=== PATIENT | female | born 1945 | race Caucasian/White ===

== ENCOUNTER 2018-01-09 20:33 | Emergency (ER) | payer MEDICARE ==
[2018-01-09] MEDS ORDERED: ACETAMINOPHEN 325 MG TABLET PO ONE (21:08)
--- NOTE | 2018-01-09 21:45 | RADIOLOGY REPORT (SQ) ---
EXAM DESCRIPTION: HAND LEFT 3 VIEWS COMPLETED DATE/TIME: 01/09/2018 9:28 pm REASON FOR STUDY: injury COMPARISON: None. EXAM PARAMETERS: NUMBER OF VIEWS: Three views. TECHNIQUE: AP, lateral and oblique radiographic images acquired of the left hand. LIMITATIONS: None. FINDINGS: MINERALIZATION: Normal. BONES: No acute fracture or dislocation. No worrisome bone lesions. JOINTS: Mild degenerative joint changes in the 1st metacarpophalangeal joint. SOFT TISSUES: Dorsal soft tissue swelling. OTHER: No other significant finding. IMPRESSION: Mild degenerative joint changes. TECHNICAL DOCUMENTATION: JOB ID: [id number] [email or web address]- All Rights Reserved Reading location - IP/workstation name: [email or web address]
--- NOTE | 2018-01-09 21:46 | RADIOLOGY REPORT (SQ) ---
EXAM DESCRIPTION: ANKLE RIGHT COMPLETE COMPLETED DATE/TIME: 01/09/2018 9:29 pm REASON FOR STUDY: injury COMPARISON: None. NUMBER OF VIEWS: Three views. TECHNIQUE: AP, lateral, and oblique radiographic images acquired of the right ankle. LIMITATIONS: None. FINDINGS: MINERALIZATION: Normal. BONES: No acute fracture or dislocation. No worrisome bone lesions. JOINTS: No effusions. SOFT TISSUES: No soft tissue swelling. No foreign body. OTHER: No other significant finding. IMPRESSION: NEGATIVE STUDY OF THE RIGHT ANKLE. NO RADIOGRAPHIC EVIDENCE OF ACUTE INJURY. TECHNICAL DOCUMENTATION: JOB ID: [id number] [employer]- All Rights Reserved Reading location - IP/workstation name: [email or web address]
--- NOTE | 2018-01-10 01:11 | ER Document Report ---
ED Fall - General Mode of Arrival: Ambulatory Information source: Patient TRAVEL OUTSIDE OF THE [place] IN LAST 30 DAYS: No - HPI Patient complains to provider of: Fall Occurred: This evening Where: Outdoors Context: Fell from standing Associated symptoms: Other - see notes above Location of injury/pain: Other - see notes above - General Chief Complaint: Fall Stated Complaint: FALL Time Seen by Provider: 01/10/18 00:17 Notes: 72 year old female presents to the ED after falling face first down 7 wooden deck stairs earlier this evening and injuring her head, neck, chest, left arm, and right leg earlier this evening. Patient reports that she was bent over putting a lid on a bucket and when she stood up to turn around, her right knee and ankle gave out and she fell. Patient reports no current head pain. Patient denies loss of consciousness or nausea. Patient is not on any blood thinning medications. (DWAINE MARIE) Past Medical History - General Information source: Patient - Social History Smoking Status: Never Smoker Family History: Reviewed & Not Pertinent Patient has suicidal ideation: No Patient has homicidal ideation: No Renal/ Medical History: Denies: Hx Peritoneal Dialysis Past Surgical History: Reports: Hx Cholecystectomy, Hx Gastric Bypass Surgery, Hx Hysterectomy, Hx Mastectomy Review of Systems - Review of Systems Constitutional: No symptoms reported EENT: No symptoms reported Cardiovascular: No symptoms reported Respiratory: No symptoms reported Gastrointestinal: No symptoms reported. denies: Nausea Genitourinary: No symptoms reported Female Genitourinary: No symptoms reported Musculoskeletal: See HPI, Other - right ankle and knee pain Skin: See HPI, Other - skin tear to the left arm Hematologic/Lymphatic: No symptoms reported Neurological/Psychological: See HPI, Headaches. denies: Lost consciousness -: Yes All other systems reviewed and negative Physical Exam - General General appearance: Alert In distress: None - HEENT Head: Other - Abrasion over the right filtrum. No: Normocephalic, Atraumatic Eyes: Normal Extraocular movements intact: Yes Pupils: PERRL - Respiratory Respiratory status: No respiratory distress - Cardiovascular Rhythm: Regular - Abdominal Inspection: Normal - Extremities General upper extremity: Normal ROM, Normal strength, Other - Abrasion to the left upper extremity. Hematoma to the dorsal aspect of the left hand.. No: Normal inspection General lower extremity: Normal ROM, Normal strength, Other - Abrasion to the lateral right thigh. Bilateral knee contusions. Non-specific tenderness to palpation of the right ankle. - Neurological Neuro grossly intact: Yes - Psychological Associated symptoms: Normal affect, Normal mood - Skin Skin Temperature: Warm Skin Moisture: Dry Skin Color: Normal Skin irregularity: other - see extremity exam above - Vital signs Vitals: Temp Pulse Resp BP Pulse Ox 97.8 F 70 20 168/77 H 97 01/09/18 21:37 01/09/18 21:37 01/09/18 21:37 01/09/18 21:37 01/09/18 21:37 Course - Re-evaluation Re-evalutation: 01/10/18 02:57 Patient is a 72-year-old female who fell down 7 wooden steps this evening. Patient has no acute findings on her head CT. No fractures or dislocations identified on her x-rays. Patient is able to ambulate with crutches and Noel bandages. I have offered admission due to her pain and difficulty with ambulation. Her daughter would prefer to take her home. Daughter states that she and her are retired and will be able to take care of her mother. Patient will be discharged home with a Rollator and pain medication. She is to follow-up with a primary doctor and orthopedics as needed. Understands and agrees with plan. Tetanus has been updated. Noel wraps have been applied to right ankle, right knee, and left hand. Stable for discharge. Grateful for care. (DAVID MARTINEZ) - Vital Signs Vital signs: Temp Pulse Resp BP Pulse Ox 97.7 F 79 20 153/86 H 97 01/10/18 03:12 01/10/18 03:12 01/10/18 03:12 01/10/18 03:12 01/10/18 03:12 Discharge - Discharge Clinical Impression: Fall (on) (from) other stairs and steps, initial encounter Head injury Qualifiers: Encounter type: initial encounter Qualified Code(s): S09.90XA - Unspecified injury of head, initial encounter Arm abrasion Qualifiers: Encounter type: initial encounter Laterality: left Qualified Code(s): S40.812A - Abrasion of left upper arm, initial encounter Knee contusion Qualifiers: Encounter type: initial encounter Laterality: unspecified laterality Qualified Code(s): S80.00XA - Contusion of unspecified knee, initial encounter Osteoarthritis of knees, bilateral Qualifiers: Osteoarthritis type: unspecified Qualified Code(s): M17.0 - Bilateral primary osteoarthritis of knee Ankle injury Qualifiers: Encounter type: initial encounter Laterality: right Qualified Code(s): S99.911A - Unspecified injury of right ankle, initial encounter Traumatic hematoma of left hand Qualifiers: Encounter type: initial encounter Qualified Code(s): S60.222A - Contusion of left hand, initial encounter Condition: Stable Disposition: HOME, SELF-CARE Instructions: Abrasions ([facility]), Noel Wrap ([facility]), Contusion ([facility]), Family Physicians / Practices, Head Injury Precautions ([facility]), Hematoma ([facility]), Ice Packs ([facility]), Osteoarthritis ([facility]) Prescriptions: Oxycodone HCl/Acetaminophen [Percocet 5-325 mg Tablet] 1 - 2 tab PO Q4H PRN #15 tablet PRN Reason: Walker [Ultra-Light Rollator] 1 each [facility] DAILY #1 each Referrals: JOSELYN JOHNSON MD [ACTIVE STAFF] - Follow up in 1 week Scribe Attestation: 01/10/18 04:26 I personally performed the services described in the documentation, reviewed and edited the documentation which was dictated to the scribe in my presence, and it accurately records my words and actions. (DAVID MARTINEZ) Scribe Documentation - Scribe Written by Scribe:: Hernán Doshi, 01/10/2018 0119 acting as scribe for :: Lena
[2018-01-10] MEDS ORDERED: DIPH/PERTUSS(ACELL)/TETANUS VAC/PF 0.5 ML SYR (>=10YO) IM ONE (01:43)
--- NOTE | 2018-01-10 01:43 | RADIOLOGY REPORT (SQ) ---
EXAM DESCRIPTION: CT HEAD WITHOUT CLINICAL HISTORY: fall, headache COMPARISON: None available TECHNIQUE: Axial CT of the head obtained from the skull apex to the skull base without contrast. FINDINGS: No acute intracranial hemorrhage identified. No mass, mass effect, shift of the midline, abnormal extra-axial fluid collection or CT evidence of acute ischemic change identified. The ventricular system and sulcal spaces are mildly enlarged compatible with mild cerebral atrophy. Scattered areas of hypodensity throughout the supratentorial white matter are nonspecific and may be related to chronic small vessel ischemic change. The visualized paranasal sinuses and the mastoids are clear. No skull fracture identified. Visualized orbits and globes are unremarkable. Atherosclerotic calcification of the intracranial internal carotid arteries. DLP:1017.17 mGy-cm IMPRESSION: 1. No acute intracranial abnormality by CT criteria. This exam was performed according to our departmental dose-optimization program, which includes automated exposure control, adjustment of the mA and/or kV according to patient size and/or use of iterative reconstruction technique.
--- NOTE | 2018-01-10 02:17 | RADIOLOGY REPORT (SQ) ---
EXAM DESCRIPTION: KNEE BILATERAL 1-2 VIEWS CLINICAL HISTORY: fall, pain COMPARISON: None. FINDINGS: Right knee: 2 views of the right knee. No acute fracture or dislocation. Osteopenia. Severe 3 compartment joint space narrowing and marginal osteophytosis. Left knee: 2 views of the left knee. No acute fracture or dislocation. Osteopenia. Severe 3 compartment joint space narrowing and marginal osteophytosis. IMPRESSION: 1. No acute fracture or dislocation. 2. Severe bilateral 3 compartment osteoarthritic change.
[2018-01-10] MEDS ORDERED: HYDROCODONE/ACETAMINOPHEN 5-325 MG (6 TAB/ER DISP) PO PRN (02:58)
[2018-01-10 03:42] VITALS: BP 153/86
== END 2018-01-10 03:30 | disposition home or self-care (01) ==
LOC: ER 20:33
DX: S09.90XA Unspecified injury of head, initial encounter (principal); S40.812A Abrasion of left upper arm, initial encounter; S80.01XA Contusion of right knee, initial encounter; S80.02XA Contusion of left knee, initial encounter; S99.911A Unspecified injury of right ankle, initial encounter; S60.222A Contusion of left hand, initial encounter; S70.311A Abrasion, right thigh, initial encounter; S00.81XA Abrasion of other part of head, initial encounter; M17.0 Bilateral primary osteoarthritis of knee; M25.571 Pain in right ankle and joints of right foot; M25.561 Pain in right knee; W10.8XXA Fall (on) (from) other stairs and steps, initial encounter
CPT/HCPCS: 99284; 90471; 73610; 73130; 73560; 70450; 90715; A9270 ×2

== ENCOUNTER 2018-07-30 06:55 | Day surgery (SDC) | payer MEDICARE ==
[~2018-07-30 06:55] MED LIST: KETOROLAC TROMETHAMINE 0.45% 4 DROP/0.4 ML DROPERETTE OD PRN
[2018-07-30] MEDS ORDERED: MIDAZOLAM 2 MG/2 ML INJ ONE (07:00)
[2018-07-30] MEDS: TETRACAINE HCL 0.5% OPH SOLN 0.6 ML DROPERETTE OD PRN ×2 (07:10→07:39)
[2018-07-30] MEDS: TROPICAMIDE 1% OPH SOLN 3 ML OD PRN ×3 (07:11→07:35)
[2018-07-30] MEDS: CYCLOPENTOLATE 0.2%/PHENYLEPHRINE 1% OPH SOLN 2 ML OD PRN ×3 (07:11→07:35)
[2018-07-30] MEDS: BESIFLOXACIN HCL 0.6% OPH SUSP 5 ML BOTTLE OD PRN ×4 (07:11→08:23)
[2018-07-30] MEDS: LIDOCAINE 4% INJ/PF (40 MG/ML) 5 ML AMPUL OD PRN ×2 (07:59)
[2018-07-30] MEDS: BUPIVACAINE HCL 0.75% INJ/PF (7.5 MG/1 ML) 10 ML SDV OD PRN ×2 (07:59)
[2018-07-30] MEDS: EPINEPHRINE INJ/PF 1 MG/1 ML AMPULE ONE ×2 (08:08)
[2018-07-30] MEDS: CHONDR SU A NA/HYALUR INTRAOC KIT (SURGICARE) ONE ×2 (08:08)
[2018-07-30] MEDS: LIDOCAINE 1% INJ-PF (10 MG/ML) 30 ML SDV ONE ×2 (08:08)
[2018-07-30] MEDS: DORZOLAMIDE HCL 2%/TIMOLOL MALEAT 0.5% OPH SOLN 10 ML OD PRN ×2 (08:23)
--- NOTE | 2018-07-30 10:37 | [facility] OPERATIVE REPORT E ---
[facility] Operative Report NAME: KAROLYN TALAVERA AGE: 73Y DATE OF SURGERY: 07/30/2018 ROOM: PREOPERATIVE DIAGNOSIS: CATARACT, RIGHT EYE. POSTOPERATIVE DIAGNOSIS: CATARACT, RIGHT EYE. PROCEDURE PERFORMED: PHACOEMULSIFICATION WITH POSTERIOR CHAMBER INTRAOCULAR LENS, RIGHT EYE. SURGEON: GILMA SIMPSON MD ANESTHESIA: TOPICAL WITH MAC. INDICATIONS FOR SURGERY: Difficulty reading road signs. Best corrected visual acuity 20/60. PROCEDURE: The patient was brought to the Operating Room and placed on the operative table. Following tetracaine drops, topical anesthesia was administered. This consisted of instrument wipe pledgets soaked in a solution of 4% Xylocaine mixed with 0.75% Marcaine in a 1:2 ratio. A 2 x 1 cm pledget was placed in the superior fornix. A 1 x 1 cm pledget was placed in the inferior fornix. The eye was patched shut for 5 minutes. The patch was removed. The eye was sterilely prepped and draped in the usual manner. Lid speculum was placed in the eye. The pledgets were removed. 4-0 black silk sutures were placed around the superior and the inferior rectus muscles to be used as traction. A conjunctival peritomy was made at the 10 o'clock position. Hemostasis was obtained with bipolar cautery. A posterior limbal groove was created using a crescent knife and dissected anteriorly towards the cornea. A sharp point blade was used to create a paracentesis site at the 2 o'clock position. A 2.4 mm keratome was used to enter the anterior chamber through the groove. Viscoelastic was injected into the anterior chamber. An anterior capsulotomy was performed using Utrata forceps in a capsulorrhexis fashion. Hydrodissection and hydrodelineation were performed. Phacoemulsification was performed in [id number]-[id number] technique. A total of 11.80 CDE phaco time was used. Following this, the I/A unit was used to remove residual cortex. Viscoelastic was injected into the capsular bag. Intraocular lens model SN60WF, 21.0 diopters, serial number [id number] was placed in the capsular bag. The I/A unit was used to remove residual viscoelastic. The wound was seen to be watertight under high and low pressure, and no sutures were placed. The intraocular lens was well centered. The pressure was adjusted in the eye to normal pressure. The 4-0 black silk sutures and lid speculum were removed. The eye was shielded after Besivance drops were placed. The patient tolerated the procedure well and was sent to the Recovery Room in good condition. DICTATING PHYSICIAN: GILMA SIMPSON M.D. DICTATING PHYSICIAN: GILMA SIMPSON M.D. [id number] PHY#: [id number] ID: [id number] JOB#: [id number] ACCT: [id number] cc:GILMA SIMPSON M.D. >
--- NOTE | 2018-07-30 10:38 | [facility] DISCHARGE SUMMARY E ---
[facility] Discharge Summary NAME: KAROLYN TALAVERA AGE: 73Y ADMITTED: 07/30/2018 DISCHARGED: 07/30/2018 FINAL DIAGNOSIS: CATARACT, RIGHT EYE. HOSPITAL COURSE: The patient is a 73-year-old lady who underwent uneventful cataract extraction with intraocular lens implant, right eye on 07/30/2018. She will be discharged to home. She is instructed to resume preoperative medications, take Tylenol as needed for discomfort, to keep her eye shielded, to use Durezol, Ilevro, and Besivance at 3 p.m. and 8 p.m., and to follow up in my office in 1 day. DICTATING PHYSICIAN: GILMA SIMPSON M.D. [id number] PHY#: [id number] ID: [id number] JOB#: [id number] ACCT: [id number] cc:GILMA SIMPSON M.D. >
== END 2018-07-30 09:03 | disposition home or self-care (01) ==
LOC: SC 06:55
PROVIDERS: ATTEND Ophthalmology
DX: H25.813 Combined forms of age-related cataract, bilateral (principal); H53.2 Diplopia; H04.123 Dry eye syndrome of bilateral lacrimal glands; H52.4 Presbyopia; M19.90 Unspecified osteoarthritis, unspecified site; Z79.82 Long term (current) use of aspirin; Z79.899 Other long term (current) drug therapy; Z85.3 Personal history of malignant neoplasm of breast
CPT/HCPCS: 66984; V2632; J2250; J3490 ×4; A9270; J0171; 142

== ENCOUNTER 2018-08-20 06:45 | Day surgery (SDC) | payer MEDICARE ==
[2018-08-20] MEDS: TETRACAINE HCL 0.5% OPH SOLN 0.6 ML DROPERETTE OS PRN ×2 (07:01→07:33)
[2018-08-20] MEDS: TROPICAMIDE 1% OPH SOLN 3 ML OS PRN ×3 (07:02→07:30)
[2018-08-20] MEDS: BESIFLOXACIN HCL 0.6% OPH SUSP 5 ML BOTTLE OS PRN ×4 (07:02→08:22)
[2018-08-20] MEDS: CYCLOPENTOLATE 0.2%/PHENYLEPHRINE 1% OPH SOLN 2 ML OS PRN ×3 (07:02→07:30)
[2018-08-20] MEDS: KETOROLAC TROMETHAMINE 0.45% 4 DROP/0.4 ML DROPERETTE OS PRN ×2 (07:03→08:48)
[2018-08-20] MEDS ORDERED: MIDAZOLAM 2 MG/2 ML INJ ONE (07:36)
[2018-08-20] MEDS ORDERED: FENTANYL CITRATE INJ/PF 100 MCG/2 ML AMPUL ONE (07:36)
[2018-08-20] MEDS: BUPIVACAINE HCL 0.75% INJ/PF (7.5 MG/1 ML) 10 ML SDV OS PRN ×2 (07:56)
[2018-08-20] MEDS: LIDOCAINE 4% INJ/PF (40 MG/ML) 5 ML AMPUL OS PRN ×2 (07:56)
[2018-08-20] MEDS: EPINEPHRINE INJ/PF 1 MG/1 ML AMPULE ONE ×2 (08:08)
[2018-08-20] MEDS: LIDOCAINE 1% INJ-PF (10 MG/ML) 30 ML SDV ONE ×2 (08:08)
[2018-08-20] MEDS: CHONDR SU A NA/HYALUR INTRAOC KIT (SURGICARE) ONE ×2 (08:08)
[2018-08-20] MEDS: DORZOLAMIDE HCL 2%/TIMOLOL MALEAT 0.5% OPH SOLN 10 ML OS PRN ×2 (08:22)
--- NOTE | 2018-08-20 13:42 | [facility] OPERATIVE REPORT E ---
[facility] Operative Report NAME: KAROLYN TALAVERA AGE: 73Y DATE OF SURGERY: 08/20/2018 ROOM: PREOPERATIVE DIAGNOSIS: Cataract, left eye. POSTOPERATIVE DIAGNOSIS: Cataract, left eye. PROCEDURE PERFORMED: Phacoemulsification with posterior chamber intraocular lens, left eye. SURGEON: GILMA SIMPSON M.D. ANESTHESIA: Topical with MAC. INDICATIONS FOR SURGERY: Difficulty driving. PROCEDURE: The patient was brought to the Operating Room and placed on the operative table. Following tetracaine drops, topical anesthesia was administered. This consisted of instrument wipe pledgets soaked in a solution of 4% Xylocaine mixed with 0.75% Marcaine in a 1:2 ratio. A 2 x 1 cm pledget was placed in the superior fornix. A 1 x 1 cm pledget was placed in the inferior fornix. The eye was patched shut for 5 minutes. The patch was removed. The eye was sterilely prepped and draped in the usual manner. Lid speculum was placed in the eye. The pledgets were removed. 4-0 black silk sutures were placed around the superior and the inferior rectus muscles to be used as traction. A conjunctival peritomy was made at the 10 o'clock position. Hemostasis was obtained with bipolar cautery. A posterior limbal groove was created using a crescent knife and dissected anteriorly towards the cornea. A sharp point blade was used to create a paracentesis site at the 2 o'clock position. A 2.4 mm keratome was used to enter the anterior chamber through the groove. Viscoelastic was injected into the anterior chamber. An anterior capsulotomy was performed using Utrata forceps in a capsulorrhexis fashion. Hydrodissection and hydrodelineation were performed. Phacoemulsification was performed in [id number]-piilclv technique. A total of 11.82 CDE seconds phaco time was used. Following this, the I/A unit was used to remove residual cortex. Viscoelastic was injected into the capsular bag. Intraocular lens model SN60WF, 22.0 diopters, serial number [id number] was placed in the capsular bag. The I/A unit was used to remove residual viscoelastic. The wound was seen to be watertight under high and low pressure, and no sutures were placed. The intraocular lens was well centered. The pressure was adjusted in the eye to normal pressure. The 4-0 black silk sutures and lid speculum were removed. The eye was shielded after Besivance drops were placed. The patient tolerated the procedure well and was sent to the Recovery Room in good condition. DICTATING PHYSICIAN: GILMA SIMPSON M.D. [id number] PHY#: [id number] ID: [id number] JOB#: [id number] ACCT: [id number] cc:GILMA SIMPSON M.D. >
--- NOTE | 2018-08-20 13:42 | [facility] DISCHARGE SUMMARY E ---
[facility] Discharge Summary NAME: KAROLYN TALAVERA AGE: 73Y ADMITTED: 08/20/2018 DISCHARGED: 08/20/2018 HOSPITAL COURSE: The patient is a 73-year-old lady who underwent uneventful cataract extraction with intraocular lens implant left eye on 08/20/2018. She will be discharged to home. She is instructed to resume preoperative medications, to take Tylenol as needed for discomfort, to keep her eye shielded, to use Durezol, Ilevro, and Besivance at 3 p.m., and to follow up in my office in 1 day. DICTATING PHYSICIAN: GILMA SIMPSON M.D. [id number] PHY#: [id number] ID: [id number] JOB#: [id number] ACCT: [id number] cc:GILMA SIMPSON M.D. >
== END 2018-08-20 09:01 | disposition home or self-care (01) ==
LOC: SC 06:45
PROVIDERS: ATTEND Ophthalmology
DX: H25.812 Combined forms of age-related cataract, left eye (principal); Z96.1 Presence of intraocular lens; M19.90 Unspecified osteoarthritis, unspecified site; E66.9 Obesity, unspecified; Z68.34 Body mass index [BMI] 34.0-34.9, adult
CPT/HCPCS: 66984; V2632; J2250; J3490 ×4; A9270; J0171; J3010; 142